=== PATIENT | female | born 1940 | race Caucasian/White ===

== ENCOUNTER 2019-03-02 16:58 | Day surgery (SDC) | payer MEDICARE, OTHER ==
[~2019-03-02] VITALS: Ht 158.8 cm; Wt 55.2 kg
[2019-03-02] VITALS (23 sets, daily range): BP systolic 107–166; BP diastolic 46–87; PULSE 60–82; RESP 13–25; Ht 158.8 cm; Wt 55.2 kg
--- NOTE | 2019-03-02 17:05 | HPN ---
Date/Time of Note Date/Time of Note DATE: 03/02/19 TIME: 17:05 Interval H&P Admission Note Pt. seen H&P reviewed: No system changes WADE CLEMENS Mar 02, 2019 17:05
[2019-03-02] MEDS ORDERED: LACTATED RINGER'S 1,000 ML IV SCH (18:30)
[2019-03-02] MEDS ORDERED: CLINDAMYCIN 900 MG/D5W (PMX) 50 ML IVPB SCH (18:30)
--- NOTE | 2019-03-02 19:11 | PREAC ---
Date/Time of Note Date/Time of Note DATE: 03/02/19 TIME: 19:10 Anesthesia Eval and Record Evaluation Time Pre-Procedure Interview DATE: 03/02/19 TIME: 19:10 Age 78 Sex female NPO: 8 hrs Preoperative diagnosis Rt distal radius fracture Planned procedure Rt distal radius ORIF Past Medical History Past Medical History: Includes Endo: Hypothyroid Surgery & Anesthesia Issues No known issue Meds Anticoagulation: No Beta Chanda within 24 hr: No Reason Beta Chanda not given: Pt. not on B-Chanda Current Medications Clindamycin HCl/ Dextrose 50 ml @ 50 mls/hr ONCE IVPB ; Start 03/02/19 at 18:30; Stop 03/02/19 at 19:29 Lactated Ringer's 1,000 ml @ 0 mls/hr Q0M IV Last administered on 03/02/19at 18:12; Admin Dose 0 MLS/HR; Start 03/02/19 at 18:30 Meds reviewed: Yes Allergies Coded Allergies: Penicillins (Verified Allergy, Intermediate, rash, 03/02/19) Allergies Reviewed: Yes Labs/Studies Labs Reviewed: Reviewed by anesthesiologist test: N/A Pre-procedure Exam Last vitals Vital Signs Date Temp Pulse Resp B/P (MAP) Pulse Ox O2 O2 Flow FiO2 Time Delivery Rate 03/02/19 97.2 60 18 144/67 98 Room Air 18:11 (92) Airway: Adequate mouth opening, Adequate thyromental dist Mallampati: Mallampati II Teeth: Normal Lung: Normal Heart: Normal ASA Physical Status ASA physical status: 3 Emergency: None Planned Anesthetic General/MAC: LMA Planned Pain Management Single shot nerve block, Parenteral pain med, Local by surgeon Pre-operative Attestations Prior to commencing anesthesia and surgery, the patient was re-evaluated, there was verification of: *The patient's identity *The results of appropriate recent lab work and preoperative vital signs *The above evaluation not changing prior to induction *Anesthetic plan, risk benefits, alternative and complications discussed with patient/family; questions answered; patient/family understands, accepts and wishes to proceed. ERIC VACA MD Mar 02, 2019 19:11
[2019-03-02] MEDS ORDERED: POLYMYXIN/BACITRACIN 1L IRRIG ONE (19:12)
[2019-03-02] MEDS ORDERED: FENTAnyl 50 MCG/ML VIAL ONE (19:19)
[2019-03-02] MEDS ORDERED: MIDAZOLAM 1 MG/ML 2 ML INJ ONE (19:19)
[2019-03-02] MEDS ORDERED: ROPIVACAINE 0.5 % 30 ML VIAL ONE (20:27)
[2019-03-02] MEDS ORDERED: CEFAZOLIN 1 GM INJ ONE (20:44)
[2019-03-02] MEDS ORDERED: ONDANSETRON 4 MG INJ ONE (20:44)
[2019-03-02] MEDS ORDERED: ETOMIDATE 20 MG INJ ONE (20:44)
[2019-03-02] MEDS ORDERED: LIDOCAINE 2% (SDV) 5 ML INJ ONE (20:44)
--- NOTE | 2019-03-02 20:58 | PAC ---
Date/Time of Note Date/Time of Note DATE: 03/02/19 TIME: 20:58 Post-Anesthesia Notes Post-Anesthesia Note Last documented vital signs Vital Signs Date Temp Pulse Resp B/P (MAP) Pulse Ox O2 O2 Flow FiO2 Time Delivery Rate 03/02/19 97.2 60 18 144/67 98 Room Air 18:11 (92) Activity: WNL Respiratory function: WNL Cardiovascular function: WNL Mental status: Baseline Pain reasonably controlled: Yes Hydration appropriate: Yes Nausea/Vomiting absent: Yes Comments BP:112/67, P:78, Spo2:100%, T:98,7 ERIC VACA MD Mar 02, 2019 20:58
[2019-03-02] MEDS ORDERED: DIPHENHYDRAMINE 50 MG INJ IV PRN (21:00)
[2019-03-02] MEDS ORDERED: hydrALAzine 20 MG INJ IV PRN (21:00)
[2019-03-02] MEDS ORDERED: HYDROmorphONE 1 MG/5 ML IV SYRINGE IV PRN ×2 (21:00)
[2019-03-02] MEDS ORDERED: KETOROLAC 30 MG INJ IV PRN (21:00)
[2019-03-02] MEDS ORDERED: MEPERIDINE 25 MG INJ IV PRN (21:00)
[2019-03-02] MEDS ORDERED: LABETALOL HCL 20MG INJ IV PRN (21:00)
[2019-03-02] MEDS ORDERED: FENTAnyl 50 MCG/ML VIAL IV PRN (21:00)
[2019-03-02] MEDS ORDERED: METOCLOPRAMIDE 10 MG INJ IV PRN (21:00)
[2019-03-02] MEDS ORDERED: ONDANSETRON 4 MG INJ IV PRN (21:00)
--- NOTE | 2019-03-02 21:08 | OPPN ---
Date/Time of Note Date/Time of Note DATE: 03/02/19 TIME: 21:06 Operative Report Preoperative Diagnosis Right distal radius fracture, intra-articular, greater than three fragments Right carpal tunnel syndrome Postoperative Diagnosis Right distal radius fracture, intra-articular, greater than three fragments Right carpal tunnel syndrome Operation/Procedure Performed ORIF Right distal radius fracture, intra-articular, greater than three fragments Right carpal tunnel release, open Right wrist brachioradialis tendon lengthening Surgeon see signature line orthopedic physician assistant none Anesthesia: general Estimated blood loss: 0 - 10 ml's Transfusion Required none Specimen none Grafts/Implants none Complications none WADE CLEMENS Mar 02, 2019 21:08
--- NOTE | 2019-03-03 04:11 | OPR ---
DATE OF OPERATION: 03/02/2019 SURGEON: Jairo Ward MD. ANESTHESIA: General. PREOPERATIVE DIAGNOSES: 1. Right distal radius fracture, intra-articular, greater than 3 fragments. 2. Right carpal tunnel syndrome. POSTOPERATIVE DIAGNOSES: 1. Right distal radius fracture, intraarticular, greater than 3 fragments. 2. Right carpal tunnel syndrome. PROCEDURES: 1. Open reduction internal fixation right distal radius fracture, intra- articular, greater than 3 fragments. 2. Right carpal tunnel release, open. 3. Lengthening of the right wrist brachioradialis tendon. OPERATIVE FINDINGS: 1. Intra-articular right distal radius fracture with comminution. 2. Swelling at the carpal canal. 3. Radial force of the brachioradialis tendon. INDICATION FOR PROCEDURE: A 78-year-old female with injury to the right wrist. She was seen in clinic and diagnosed with a displaced distal radius fracture. She also had carpal tunnel symptoms. We discussed the options. The patient elected to proceed with surgical intervention, understanding the risks and benefits. DESCRIPTION OF PROCEDURE: The patient was seen in the preoperative area. All further questions were answered. Again, she gave informed consent understanding risks and benefits. She was taken to OR suite and placed in supine position. She was placed under general anesthesia and Ancef 2 grams IV given. Tourniquet placed in the right upper extremity and right upper extremity was prepped with ChloraPrep stick and draped in usual sterile fashion. Esmarch bandage was used to exsanguinate the extremity and tourniquet inflated to 250 mmHg. A modified volar Pradip approach to the distal radius was utilized with sharp dissection carried down through skin and subcutaneous tissue. The FCR sheath was incised and retracted ulnarly. The FCR subsheath incised and FPL tendon retracted ulnarly. Pronator quadratus was incised along its radial and distal borders and the fracture site was identified. The distal fragment was radial displaced due to the pull of the brachioradialis tendon. Lengthening of the brachioradialis tendon was performed using Bovie electrocautery and a 15 blade knife elevating the distal aspect of the brachioradialis tendon off of the radial styloid. I was then able to reduce the fracture fragments and a [employer] volar distal radius plate was placed across the fracture site. A cortical screw was placed in the oblong hole and locking screws were placed distally. X-ray imaging showed appropriate hardware placement and bony alignment. Additional cortical and locking screws were placed proximally. Wound was copiously irrigated. Skin closed with 5-0 nylon. Attention was turned to the carpal tunnel and a 2 cm incision at the base of the palm was utilized with sharp dissection carried down through skin and subcutaneous tissue. Palmar aponeurosis was incised along its ulnar border and retractors were deepened. The transverse carpal ligament divided along its ulnar border approximately 3 mm radial to the hook of the hamate. Retractors were placed proximally and distally and the proximal and distal extensor transverse carpal ligaments were divided under direct visualization. Wound was copiously irrigated. Skin closed with 5-0 nylon. Xeroform placed over the wounds, followed by sterile gauze, Webril, and a short arm splint. Tourniquet deflated after 43 minutes. The patient was awakened from anesthesia. She was taken to postoperative suite in stable condition. She tolerated the procedure well without complication. SPECIMENS: None. ESTIMATED BLOOD LOSS: 5 mL. COUNTS: Sponge, instrument, needle counts correct. TOURNIQUET TIME: 43 minutes. CONDITION ON DISCHARGE: Stable. The patient was given a nonrefillable 5-day prescription for pain medication for surgery today. Dictated By: JAIRO HAWKINS/ADEN Conf#: [id number] DID#: [id number]
== END 2019-03-02 23:15 | disposition home or self-care (01) ==
LOC: SDS 16:58
PROVIDERS: ATTEND Orthopaedic Surgery Hand Surgery
DX: G56.01 Carpal tunnel syndrome, right upper limb (principal); S52.571G Other intraarticular fracture of lower end of right radius, subsequent encounter for closed fracture with delayed healing; X58.XXXD Exposure to other specified factors, subsequent encounter; E03.9 Hypothyroidism, unspecified
CPT/HCPCS: 64721; 73110; C1713; J0360; J0690; J2250; J2405; J2765; J2795; J3010